=== PATIENT | female | born 1985 | race Caucasian/White ===

== ENCOUNTER 2022-01-18 11:13 | Emergency (ER) | payer MEDICAID ==
[~2022-01-18] VITALS: Ht 172.7 cm; Wt 75.0 kg
[~2022-01-18 11:13] MED LIST: DOXE10CA2 PO; FOLI-43 PO; KEPP500 PO; LORA2TAB95 PO; PRENATAL ONE T1 EACH PO; ZOLP5TAB2 PO
[2022-01-18] MEDS ORDERED: LIDOCAINE HCL/EPINEPHRINE 1%-EPI 1:100,000 20 ML VIAL INFIL ONE (11:30)
[2022-01-18 16:13] VITALS: BP 115/67
== END 2022-01-18 17:59 | disposition home or self-care (01) ==
LOC: ER 11:13
DX: S01.111A Laceration without foreign body of right eyelid and periocular area, initial encounter (principal); F15.10 Other stimulant abuse, uncomplicated; F12.10 Cannabis abuse, uncomplicated; R51.9 Headache, unspecified; Z88.6 Allergy status to analgesic agent; Z86.59 Personal history of other mental and behavioral disorders; Z98.890 Other specified postprocedural states; W01.0XXA Fall on same level from slipping, tripping and stumbling without subsequent striking against object, initial encounter; Y93.89 Activity, other specified; Y92.89 Other specified places as the place of occurrence of the external cause; Y99.8 Other external cause status
CPT/HCPCS: 12011; 70450; 99284; J3490; Z7610

== ENCOUNTER 2022-01-22 01:06 | Emergency (ER) | payer MEDICAID ==
[~2022-01-22] VITALS: Ht 167.6 cm; Wt 83.0 kg
[2022-01-22 03:48] LABS: BASOPHILS % 0.5 % (0.0-2.0); EOSINOPHILS % 1.8 % (0.0-5.0); HEMOGLOBIN. 13.9 g/dL (12.0-16.0); LYMPHOCYTES % 48.5 % (20.0-50.0); MEAN CORPUSCULAR HEMOGLOBIN 31.8 pg (28.0-32.0); MEAN CORPUSCULAR VOLUME 93.8 fL (81.0-99.0); MEAN PLATELET VOLUME 8.8 fl (7.4-10.4); MONOCYTES % 6.5 % (2.0-8.0); NEUTROPHILS % 42.7 % (40.0-76.0); PLATELET 250 x1000/uL (130-400); RED BLOOD CELL COUNT 4.37 mill/uL (4.2-5.4); RED CELL DISTRIBUTION WIDTH 14.5 % (11.6-14.6)
[2022-01-22 03:58] LABS: CHLORIDE 108 mEq/L (98-107)
[2022-01-22 10:20] VITALS: BP 112/82
== END 2022-01-22 10:52 | disposition home or self-care (01) ==
LOC: ER 01:06
DX: R51.9 Headache, unspecified (principal); W06.XXXA Fall from bed, initial encounter; I49.9 Cardiac arrhythmia, unspecified; Z91.048 Other nonmedicinal substance allergy status; Z88.6 Allergy status to analgesic agent; Z88.8 Allergy status to other drugs, medicaments and biological substances; Y93.89 Activity, other specified; Y92.89 Other specified places as the place of occurrence of the external cause; Y99.8 Other external cause status
CPT/HCPCS: 36415; 71045; 72170; 80053; 82962; 83605; 84484; 85025; 93005; 99285